=== PATIENT | female | born 1995 | race Caucasian/White ===

== ENCOUNTER 2021-08-06 15:51 | Emergency (ER) | payer OTHER ==
[~2021-08-06 15:51] MED LIST: DELSYM30 MG/5 ML PO; FLONASE 0.05% N16 GM; PREDNISONE 50 M50 MG PO; ZYRTEC10 MG PO
[2021-08-06 16:26] LABS: HEMOGLOBIN 12.4 gm/dl (12.3-15.3); RED BLOOD COUNT 4.65 M/UL (4.00-5.10); WHITE BLOOD COUNT 12.1 K/UL (4.5-11.0)
[2021-08-06 16:50] LABS: BUN/CREATININE RATIO 8 (0-10)
[2021-08-06] MEDS ORDERED: NAPROXEN500 MG PO (18:01)
[2021-08-06] MEDS ORDERED: ACYCLOVIR800 MG PO (18:01)
[2021-08-06] MEDS ORDERED: Viscous Lidocaine2% TOP (18:01)
== END 2021-08-06 17:45 | disposition home or self-care (01) ==
LOC: ER1 15:51
PROVIDERS: Physician Assistant
DX: R07.9 Chest pain, unspecified (principal); B02.9 Zoster without complications; Z88.1 Allergy status to other antibiotic agents; F17.200 Nicotine dependence, unspecified, uncomplicated
CPT/HCPCS: 71045; 80053; 82550; 82553; 83874; 84484; 85025; 85379; 93005; 99285

== ENCOUNTER 2022-06-11 02:01 | Emergency (ER) | payer OTHER ==
[~2022-06-11 02:01] MED LIST changes: +ACYCLOVIR800 MG PO; +NAPROXEN500 MG PO; +Viscous Lidocaine2% TOP
[2022-06-11] MEDS ORDERED: BENZONATATE100 MG PO (03:57)
== END 2022-06-11 04:10 | disposition home or self-care (01) ==
LOC: ER1 02:01
DX: R05.9 Cough, unspecified (principal); F17.200 Nicotine dependence, unspecified, uncomplicated; Z20.822 Contact with and (suspected) exposure to COVID-19
CPT/HCPCS: 71045; 99283; U0002